=== PATIENT | female | born 1955 | race Two or more races ===

== ENCOUNTER 2023-09-25 21:44 | Inpatient (IN) | payer OTHER ==
[~2023-09-25] VITALS: Ht 165.1 cm; Wt 76.2 kg
[2023-09-25 22:57] LABS: BASOPHILS # (AUTO) 0.1 K/uL (0.0-0.2); BASOPHILS % (AUTO) 0.7 % (0.0-2.0); EOSINOPHILS # (AUTO) 0.1 K/uL (0.0-0.7); EOSINOPHILS % (AUTO) 0.5 % (0.0-6.0); HEMATOCRIT 37 % (33-45); HEMOGLOBIN 12.5 g/dL (11.5-14.8); LYMPHOCYTES # (AUTO) 1.7 K/uL (0.8-4.8); LYMPHOCYTES % (AUTO) 13.2 % (20.0-44.0); MEAN CORPUSCULAR HEMOGLOBIN 27 PG (26.0-33.0); MEAN CORPUSCULAR HGB CONC 34 g/dl (31.0-36.0); MEAN CORPUSCULAR VOLUME 82 fL (82-100); MONOCYTES # (AUTO) 0.9 K/uL (0.1-1.30); MONOCYTES % (AUTO) 7.3 % (2.0-12.0); NEUTROPHILS % (AUTO) 78.3 % (43.0-81.0); PLATELET COUNT (AUTO) 306 K/uL (150-450); RED BLOOD CELL COUNT(AUTO) 4.56 MIL/uL (4.0-5.2); RED CELL DISTRIBUTION WIDTH 13.4 % (11.5-15.0); WHITE BLOOD COUNT (AUTO) 12.8 K/uL (4.3-11.0)
[2023-09-25 23:05] LABS: ALBUMIN 3.5 g/dL (3.4-5.0); BILIRUBIN,TOTAL 0.3 mg/dL (0.2-1.0); CALCIUM, SERUM 9.3 mg/dL (8.5-10.1); CREATININE 3.1 mg/dL (0.6-1.3); POTASSIUM 3.6 mmol/L (3.5-5.1); TOTAL PROTEIN, SERUM 7.4 g/dL (6.4-8.2)
[2023-09-25] MEDS ORDERED: IV NS 0.9% 1,000 ML IV STA (23:45)
[2023-09-26] MEDS ORDERED: IV NS 0.9% 1,000 ML IV PRN
[2023-09-26 00:28] LABS: APPEARANCE,URINE CLEAR (CLEAR); BILIRUBIN,URINE 1+ (NEGATIVE); BLOOD, URINE NEGATIVE Ery/uL (NEGATIVE); COLOR,URINE YELLOW (YELLOW); KETONES,URINE TRACE mg/dL (NEGATIVE); LEUKOCYTE ESTERASE ,URINE NEGATIVE (NEGATIVE); NITRITE, URINE NEGATIVE (NEGATIVE); PROTEIN,URINE 1+ mg/dl (NEGATIVE); UGLUCOSE 2+ mg/dL (NEGATIVE); UROBILINOGEN,URINE 0.2 EU/dL (0.2)
[2023-09-26] MEDS ORDERED: ONDANSETRON HCL/PF 4 MG/2 ML VIAL IVP PRN (00:30)
[2023-09-26] MEDS ORDERED: MORPHINE SULFATE INJ 2 MG/ML DISP.SYRIN IV PRN (00:30)
[2023-09-26] MEDS ORDERED: DEXTROSE 50%-WATER 50 ML DISP.SYRIN IV PRN (00:30)
[2023-09-26 00:45] LABS: CREATININE, URINE 149.1 MG/DL (30.0-125.0)
[2023-09-26 01:16] LABS: ADD URINE CULTURE NO; BACTERIA,URINE Few /HPF (None Seen); RBC,URINE 0-2 /HPF (0-2); SQUAMOUS EPITHELIAL CELL,UR Few /HPF (None Seen); WBC,URINE 0-2 /HPF (0-3)
[2023-09-26 01:17] LABS: URINE AMORPHOUS URATE Moderate /HPF (None Seen)
[2023-09-26] MEDS ORDERED: CEFEPIME 1 GM in IV D5W 50 ML IV ONE (02:00)
[2023-09-26] MEDS: IV NS 0.9% 1,000 ML IV SCH ×2 (02:36→13:32)
[2023-09-26] MEDS ORDERED: CEFEPIME 1 GM VIAL ONE (03:09)
[2023-09-26] MEDS: ACETAMINOPHEN 325 MG TABLET PO PRN ×2 (03:53→21:58)
[2023-09-26] MEDS: BLOOD SUGAR DIAGNOSTIC 1 EACH STRIP IN SCH ×4 (06:24→21:33)
[2023-09-26] MEDS: INSULIN REGULAR, HUMAN 100 UNIT/ML 3 ML VIAL SQ PRN ×4 (06:26→21:56)
[2023-09-26 08:00] VITALS: BP 99/66; TEMP 99; O2SAT 96
[2023-09-26] MEDS ORDERED: DOCU-141 PO (08:01)
[2023-09-26] MEDS ORDERED: ROSU5TAB PO (08:01)
[2023-09-26] MEDS ORDERED: BENA20TA78 PO (08:01)
[2023-09-26] MEDS ORDERED: GLIM4TAB37 PO (08:01)
[2023-09-26] MEDS: HEPARIN SODIUM, PORCINE 5000 UNITS/1 ML VIAL SQ SCH ×2 (09:07→21:34)
[2023-09-26] MEDS: DOCUSATE SODIUM 100 MG CAPSULE PO SCH ×2 (12:00→21:33)
[2023-09-26] MEDS ORDERED: DOCUSATE SODIUM 100 MG CAPSULE PO PRN (12:30)
[2023-09-26 13:54] LABS: THYROID STIMULATING HORMONE 0.848 uIU/mL (0.358-3.74)
[2023-09-26 14:05] LABS: C-REACTIVE PROTEIN 10.6 mg/dL (0.2-0.9)
[2023-09-26 16:00] VITALS: BP 113/74; TEMP 98.8; O2SAT 97
[2023-09-26] MEDS: GLIMEPIRIDE 4 MG TABLET PO SCH (16:47)
[2023-09-26 20:00] VITALS: BP 134/65; TEMP 98.3; O2SAT 95
[2023-09-26] MEDS: OXYMETAZOLINE HCL NASAL SPRAY 30 ML BOTTLE NS PRN (21:33)
[2023-09-26] MEDS: ATORVASTATIN 10 MG TABLET PO SCH (21:33)
[2023-09-26] MEDS: CEFEPIME 1 GM in IV D5W 50 ML IV SCH (23:25)
[2023-09-27] MEDS: IV NS 0.9% 1,000 ML IV SCH ×2 (04:51→16:42)
[2023-09-27] MEDS: BLOOD SUGAR DIAGNOSTIC 1 EACH STRIP IN SCH ×4 (05:59→21:37)
[2023-09-27] MEDS: INSULIN REGULAR, HUMAN 100 UNIT/ML 3 ML VIAL SQ PRN ×4 (06:09→21:48)
[2023-09-27 07:02] LABS: BASOPHILS # (AUTO) 0.1 K/uL (0.0-0.2); EOSINOPHILS # (AUTO) 0.3 K/uL (0.0-0.7); EOSINOPHILS % (AUTO) 3.1 % (0.0-6.0); HEMATOCRIT 31 % (33-45); HEMOGLOBIN 10.4 g/dL (11.5-14.8); LYMPHOCYTES # (AUTO) 2.5 K/uL (0.8-4.8); LYMPHOCYTES % (AUTO) 26.7 % (20.0-44.0); MEAN CORPUSCULAR HEMOGLOBIN 28 PG (26.0-33.0); MEAN CORPUSCULAR HGB CONC 34 g/dl (31.0-36.0); MEAN CORPUSCULAR VOLUME 82 fL (82-100); MONOCYTES # (AUTO) 0.7 K/uL (0.1-1.30); NEUTROPHILS # (AUTO) 5.6 K/uL (1.8-8.9); NEUTROPHILS % (AUTO) 61.2 % (43.0-81.0); PLATELET COUNT (AUTO) 237 K/uL (150-450); RED BLOOD CELL COUNT(AUTO) 3.78 MIL/uL (4.0-5.2); WHITE BLOOD COUNT (AUTO) 9.2 K/uL (4.3-11.0)
[2023-09-27 07:07] LABS: FOLIC ACID 13.5 ng/mL (>3.0)
[2023-09-27 07:25] LABS: ALBUMIN 2.6 g/dL (3.4-5.0); BILIRUBIN,TOTAL 0.3 mg/dL (0.2-1.0); CALCIUM, SERUM 8.7 mg/dL (8.5-10.1); CREATININE 1.5 mg/dL (0.6-1.3); MAGNESIUM 2.6 mg/dL (1.8-2.4); PHOSPHORUS 4.1 mg/dL (2.5-4.9); POTASSIUM 3.2 mmol/L (3.5-5.1); TOTAL PROTEIN, SERUM 6.2 g/dL (6.4-8.2)
[2023-09-27 08:00] VITALS: BP 139/89; TEMP 99.1; O2SAT 92
[2023-09-27] MEDS: DOCUSATE SODIUM 100 MG CAPSULE PO SCH ×2 (08:13→21:36)
[2023-09-27] MEDS: BENAZEPRIL HCL 20 MG TABLET PO SCH (08:13)
[2023-09-27] MEDS: GLIMEPIRIDE 4 MG TABLET PO SCH ×2 (08:14→16:42)
[2023-09-27] MEDS: HEPARIN SODIUM, PORCINE 5000 UNITS/1 ML VIAL SQ SCH ×2 (08:15→20:44)
[2023-09-27] MEDS ORDERED: POTASSIUM CHLORIDE 20 MEQ TAB.PRT.SR PO ONE (09:00)
[2023-09-27 16:00] VITALS: BP 146/72; TEMP 97.7; O2SAT 98
[2023-09-27] MEDS: ACETAMINOPHEN 325 MG TABLET PO PRN ×2 (16:55→23:56)
[2023-09-27 20:00] VITALS: BP 158/66; TEMP 98.8; O2SAT 97
[2023-09-27] MEDS: ATORVASTATIN 10 MG TABLET PO SCH (21:36)
[2023-09-27] MEDS: CEFEPIME 1 GM in IV D5W 50 ML IV SCH (22:45)
[2023-09-27] MEDS: OXYMETAZOLINE HCL NASAL SPRAY 30 ML BOTTLE NS PRN (22:47)
[2023-09-28] MEDS: BLOOD SUGAR DIAGNOSTIC 1 EACH STRIP IN SCH ×4 (05:25→21:29)
[2023-09-28] MEDS: INSULIN REGULAR, HUMAN 100 UNIT/ML 3 ML VIAL SQ PRN ×4 (05:31→21:30)
[2023-09-28] MEDS: IV NS 0.9% 1,000 ML IV SCH (05:50)
[2023-09-28 06:07] LABS: PTH, INTACT 25 pg/mL (15-65)
[2023-09-28 06:33] LABS: CREATININE, URINE 29.2 MG/DL (30.0-125.0); URINE TOTAL PROTEIN 124.7 mg/dL (0-11.9)
[2023-09-28 06:41] LABS: BASOPHILS # (AUTO) 0.1 K/uL (0.0-0.2); BASOPHILS % (AUTO) 0.9 % (0.0-2.0); EOSINOPHILS # (AUTO) 0.4 K/uL (0.0-0.7); HEMATOCRIT 34 % (33-45); HEMOGLOBIN 11.2 g/dL (11.5-14.8); LYMPHOCYTES # (AUTO) 2.2 K/uL (0.8-4.8); LYMPHOCYTES % (AUTO) 25.1 % (20.0-44.0); MEAN CORPUSCULAR HEMOGLOBIN 27 PG (26.0-33.0); MEAN CORPUSCULAR HGB CONC 33 g/dl (31.0-36.0); MEAN CORPUSCULAR VOLUME 82 fL (82-100); MONOCYTES # (AUTO) 0.9 K/uL (0.1-1.30); MONOCYTES % (AUTO) 9.8 % (2.0-12.0); NEUTROPHILS # (AUTO) 5.3 K/uL (1.8-8.9); NEUTROPHILS % (AUTO) 60.2 % (43.0-81.0); PLATELET COUNT (AUTO) 261 K/uL (150-450); RED BLOOD CELL COUNT(AUTO) 4.09 MIL/uL (4.0-5.2); RED CELL DISTRIBUTION WIDTH 13.3 % (11.5-15.0); WHITE BLOOD COUNT (AUTO) 8.8 K/uL (4.3-11.0)
[2023-09-28 07:08] LABS: ALBUMIN 2.9 g/dL (3.4-5.0); BILIRUBIN,TOTAL 0.3 mg/dL (0.2-1.0); CALCIUM, SERUM 9.1 mg/dL (8.5-10.1); CREATININE 0.8 mg/dL (0.6-1.3); MAGNESIUM 2.4 mg/dL (1.8-2.4); PHOSPHORUS 2.4 mg/dL (2.5-4.9); POTASSIUM 3.5 mmol/L (3.5-5.1)
[2023-09-28 08:00] VITALS: BP 167/83; TEMP 98.8; O2SAT 97
[2023-09-28] MEDS: BENAZEPRIL HCL 20 MG TABLET PO SCH (08:13)
[2023-09-28] MEDS: GLIMEPIRIDE 4 MG TABLET PO SCH ×2 (08:13→16:05)
[2023-09-28] MEDS: DOCUSATE SODIUM 100 MG CAPSULE PO SCH ×2 (08:13→20:26)
[2023-09-28] MEDS: HEPARIN SODIUM, PORCINE 5000 UNITS/1 ML VIAL SQ SCH ×2 (08:14→20:29)
[2023-09-28] MEDS: ACETAMINOPHEN 325 MG TABLET PO PRN (08:55)
[2023-09-28] MEDS: CEFEPIME 1 GM in IV D5W 50 ML IV SCH ×2 (09:24→20:26)
[2023-09-28] MEDS ORDERED: K PHOS NEUTRAL 250 MG TABLET PO ONE ×2 (09:30→17:00)
[2023-09-28] MEDS ORDERED: BISACODYL (5 MG) 5 MG TABLET.DR PO PRN (16:00)
[2023-09-28 20:00] VITALS: BP 144/84; TEMP 98.4; O2SAT 98
[2023-09-28] MEDS: OXYMETAZOLINE HCL NASAL SPRAY 30 ML BOTTLE NS PRN (20:09)
[2023-09-28] MEDS: ATORVASTATIN 10 MG TABLET PO SCH (21:30)
[2023-09-29] MEDS: ACETAMINOPHEN 325 MG TABLET PO PRN ×3 (02:57→23:08)
[2023-09-29 05:58] LABS: BASOPHILS # (AUTO) 0.1 K/uL (0.0-0.2); BASOPHILS % (AUTO) 1.1 % (0.0-2.0); EOSINOPHILS # (AUTO) 0.4 K/uL (0.0-0.7); HEMATOCRIT 31 % (33-45); HEMOGLOBIN 10.5 g/dL (11.5-14.8); LYMPHOCYTES # (AUTO) 2.6 K/uL (0.8-4.8); LYMPHOCYTES % (AUTO) 34.4 % (20.0-44.0); MEAN CORPUSCULAR HEMOGLOBIN 27 PG (26.0-33.0); MEAN CORPUSCULAR HGB CONC 34 g/dl (31.0-36.0); MEAN CORPUSCULAR VOLUME 82 fL (82-100); MONOCYTES # (AUTO) 0.7 K/uL (0.1-1.30); MONOCYTES % (AUTO) 9.7 % (2.0-12.0); NEUTROPHILS # (AUTO) 3.8 K/uL (1.8-8.9); NEUTROPHILS % (AUTO) 49.8 % (43.0-81.0); PLATELET COUNT (AUTO) 255 K/uL (150-450); RED BLOOD CELL COUNT(AUTO) 3.83 MIL/uL (4.0-5.2); RED CELL DISTRIBUTION WIDTH 13.2 % (11.5-15.0); WHITE BLOOD COUNT (AUTO) 7.6 K/uL (4.3-11.0)
[2023-09-29 06:08] LABS: ALBUMIN 2.8 g/dL (3.4-5.0); BILIRUBIN,TOTAL 0.2 mg/dL (0.2-1.0); CALCIUM, SERUM 9.4 mg/dL (8.5-10.1); CREATININE 0.8 mg/dL (0.6-1.3); MAGNESIUM 2.2 mg/dL (1.8-2.4); PHOSPHORUS 3.7 mg/dL (2.5-4.9); POTASSIUM 3.6 mmol/L (3.5-5.1); TOTAL PROTEIN, SERUM 6.7 g/dL (6.4-8.2)
[2023-09-29] MEDS: BLOOD SUGAR DIAGNOSTIC 1 EACH STRIP IN SCH ×4 (06:33→21:55)
[2023-09-29] MEDS: INSULIN REGULAR, HUMAN 100 UNIT/ML 3 ML VIAL SQ PRN ×4 (06:36→21:56)
[2023-09-29 07:30] VITALS: BP 155/90; TEMP 98.2; O2SAT 97
[2023-09-29] MEDS: DOCUSATE SODIUM 100 MG CAPSULE PO SCH ×2 (08:51→21:53)
[2023-09-29] MEDS: BENAZEPRIL HCL 20 MG TABLET PO SCH (08:51)
[2023-09-29] MEDS: GLIMEPIRIDE 4 MG TABLET PO SCH ×2 (08:51→16:59)
[2023-09-29] MEDS: CEFEPIME 1 GM in IV D5W 50 ML IV SCH ×2 (08:51→20:29)
[2023-09-29] MEDS: HEPARIN SODIUM, PORCINE 5000 UNITS/1 ML VIAL SQ SCH ×2 (09:00→21:55)
[2023-09-29 16:00] VITALS: BP 172/95; TEMP 98.1; O2SAT 96
[2023-09-29] MEDS: OXYMETAZOLINE HCL NASAL SPRAY 30 ML BOTTLE NS PRN (20:29)
[2023-09-29 21:00] VITALS: BP 171/78; TEMP 98.2; O2SAT 95
[2023-09-29 21:05] VITALS: BP 171/78; TEMP 98.2; O2SAT 95
[2023-09-29 21:06] VITALS: BP 202/103
[2023-09-29] MEDS: ATORVASTATIN 10 MG TABLET PO SCH (21:53)
[2023-09-29] MEDS: hydrALAZINE HCL IV 20 MG VIAL IV PRN (22:00)
[2023-09-29 23:00] VITALS: BP 168/78
[2023-09-30] MEDS ORDERED: hydrALAZINE HCL IV 20 MG VIAL IV ONE
[2023-09-30 01:15] VITALS: BP 118/63
[2023-09-30] MEDS: ACETAMINOPHEN 325 MG TABLET PO PRN (05:36)
[2023-09-30] MEDS: BLOOD SUGAR DIAGNOSTIC 1 EACH STRIP IN SCH ×2 (06:43→11:43)
[2023-09-30] MEDS: INSULIN REGULAR, HUMAN 100 UNIT/ML 3 ML VIAL SQ PRN ×2 (06:46→11:44)
[2023-09-30 07:30] VITALS: BP 152/83; TEMP 98.1; O2SAT 94
[2023-09-30] MEDS: DOCUSATE SODIUM 100 MG CAPSULE PO SCH (08:47)
[2023-09-30] MEDS: BENAZEPRIL HCL 20 MG TABLET PO SCH (08:47)
[2023-09-30] MEDS: HEPARIN SODIUM, PORCINE 5000 UNITS/1 ML VIAL SQ SCH (08:47)
[2023-09-30] MEDS: GLIMEPIRIDE 4 MG TABLET PO SCH (08:47)
[2023-09-30] MEDS: CEFEPIME 1 GM in IV D5W 50 ML IV SCH (08:51)
[2023-09-30 09:07] LABS: *SPE ALBUMIN 2.7 g/dL (2.9-4.4); *SPE ALPHA-1-GLOBULIN 0.3 g/dL (0.0-0.4); *SPE BETA GLOBULIN 0.8 g/dL (0.7-1.3); *SPE GLOBULIN, TOTAL 2.8 g/dL (2.2-3.9); *SPE M-SPIKE Not Observed g/dL (Not Observed); *SPE PROTEIN TOTAL 5.5 g/dL (6.0-8.5); *SPEGAMMA GLOBULIN 0.7 g/dL (0.4-1.8)
[2023-09-30 12:37] VITALS: BP 186/84
[2023-09-30] MEDS: hydrALAZINE HCL IV 20 MG VIAL IV PRN (12:37)
== END 2023-09-30 16:00 | DRG 48 ==
LOC: ER 21:52 → MED 09-26 01:18
DX: E11.42 Type 2 diabetes mellitus with diabetic polyneuropathy (principal); N17.0 Acute kidney failure with tubular necrosis; E87.1 Hypo-osmolality and hyponatremia; E11.22 Type 2 diabetes mellitus with diabetic chronic kidney disease; E86.9 Volume depletion, unspecified; K52.9 Noninfective gastroenteritis and colitis, unspecified; E11.65 Type 2 diabetes mellitus with hyperglycemia; I12.9 Hypertensive chronic kidney disease with stage 1 through stage 4 chronic kidney disease, or unspecified chronic kidney disease; N18.9 Chronic kidney disease, unspecified; E78.5 Hyperlipidemia, unspecified; E87.6 Hypokalemia; R29.6 Repeated falls; R53.1 Weakness; Z79.84 Long term (current) use of oral hypoglycemic drugs; R51.9 Headache, unspecified; N20.0 Calculus of kidney; R91.1 Solitary pulmonary nodule; E88.9 Metabolic disorder, unspecified; W19.XXXA Unspecified fall, initial encounter; Y92.009 Unspecified place in unspecified non-institutional (private) residence as the place of occurrence of the external cause
CPT/HCPCS: 36415; 76770-TC; 80048-TC; 80053-TC; 80061-TC; 80076-TC; 81001; 82550-TC; 82570-TC; 82607-TC; 82962-TC; 83605-TC; 83690-TC; 83735-TC; 83921; 83970; 84100-TC; 84155; 84165; 84300-TC; 84439-TC; 84443-TC; 85025-TC; 85652-TC; 86140-TC; 93307-TC; 93880-TC; 97110-TC; 97112-TC; 97116-TC; 97530-TC; A4223; G0378; J0360; J0692; J1644; J1815; J2405; J7030; J7060

== ENCOUNTER 2023-11-22 14:51 | Emergency (ER) | payer OTHER ==
[~2023-11-22] VITALS: Ht 165.1 cm; Wt 81.6 kg
[~2023-11-22 14:51] MED LIST: BENA20TA78 PO; DOCU-141 PO; GLIM4TAB37 PO; ROSU5TAB PO
[2023-11-22 15:20] VITALS: TEMP 98
[2023-11-22 16:46] LABS: BASOPHILS # (AUTO) 0.1 K/uL (0.0-0.2); EOSINOPHILS # (AUTO) 0.1 K/uL (0.0-0.7); EOSINOPHILS % (AUTO) 1.6 % (0.0-6.0); HEMATOCRIT 36 % (33-45); HEMOGLOBIN 11.9 g/dL (11.5-14.8); LYMPHOCYTES # (AUTO) 2.6 K/uL (0.8-4.8); LYMPHOCYTES % (AUTO) 31.9 % (20.0-44.0); MEAN CORPUSCULAR HEMOGLOBIN 27 PG (26.0-33.0); MEAN CORPUSCULAR HGB CONC 33 g/dl (31.0-36.0); MEAN CORPUSCULAR VOLUME 82 fL (82-100); MONOCYTES # (AUTO) 0.4 K/uL (0.1-1.30); MONOCYTES % (AUTO) 5.4 % (2.0-12.0); NEUTROPHILS # (AUTO) 4.9 K/uL (1.8-8.9); NEUTROPHILS % (AUTO) 60.1 % (43.0-81.0); PLATELET COUNT (AUTO) 255 K/uL (150-450); RED CELL DISTRIBUTION WIDTH 13.2 % (11.5-15.0); WHITE BLOOD COUNT (AUTO) 8.2 K/uL (4.3-11.0)
[2023-11-22 17:03] LABS: ACETAMINOPHEN < 10 ug/ml (10-30); ALANINE AMINOTRANSFERASE 17 U/L (12-78); ALBUMIN 3.4 g/dL (3.4-5.0); ALCOHOL, BLOOD < 3 mg/dL (0-10); ALKALINE PHOSPHATASE 100 U/L (46-116); ASPARTATE AMINOTRANSFERASE 10 U/L (15-37); BILIRUBIN,DIRECT 0.1 mg/dL (0.0-0.2); BILIRUBIN,TOTAL 0.4 mg/dL (0.2-1.0); CALCIUM, SERUM 10.2 mg/dL (8.5-10.1); CARBON DIOXIDE 26 mmol/L (21-32); CHLORIDE 96 mmol/L (98-107); CREATININE 1.1 mg/dL (0.6-1.3); POTASSIUM 4.2 mmol/L (3.5-5.1); SODIUM SERUM 133 mmol/L (136-145); TOTAL PROTEIN, SERUM 7.6 g/dL (6.4-8.2); UREA NITROGEN, BLOOD 25 mg/dL (7-18)
[2023-11-22 17:05] LABS: SALICYLATE 1.9 mg/dL (2.8-20.0)
[2023-11-22 17:06] LABS: GLUCOSE 420 mg/dL (74-106)
[2023-11-22] MEDS ORDERED: IV NS 0.9% 1,000 ML BAG IV ONE ×2 (19:00→23:30)
[2023-11-22] MEDS ORDERED: INSULIN REGULAR, HUMAN 100 UNIT/ML 10 ML VIAL SQ ONE ×2 (19:00→20:30)
[2023-11-22] MEDS ORDERED: INSULIN REGULAR, HUMAN 100 UNIT/ML 10 ML VIAL ONE (19:13)
[2023-11-22] MEDS ORDERED: CLONIDINE HCL 0.1 MG TABLET PO ONE (20:30)
[2023-11-22] MEDS ORDERED: CLONIDINE HCL 0.1 MG TABLET ONE (20:49)
[2023-11-22] MEDS ORDERED: INSULIN GLARGINE, 100 UNIT/ML CARTRIDGE SQ SCH (22:00)
[2023-11-23 00:45] LABS: APPEARANCE,URINE CLEAR (CLEAR); BILIRUBIN,URINE NEGATIVE (NEGATIVE); BLOOD, URINE NEGATIVE Ery/uL (NEGATIVE); COLOR,URINE YELLOW (YELLOW); KETONES,URINE NEGATIVE (NEGATIVE); LEUKOCYTE ESTERASE ,URINE NEGATIVE (NEGATIVE); NITRITE, URINE NEGATIVE (NEGATIVE); PH,URINE 6.5 (5.0-8.0); PROTEIN,URINE NEGATIVE (NEGATIVE); UGLUCOSE 3+ mg/dL (NEGATIVE); UROBILINOGEN,URINE 0.2 EU/dL (0.2)
[2023-11-23 00:48] LABS: ADD URINE CULTURE NO; BACTERIA,URINE Rare /HPF (None Seen); RBC,URINE 0-2 /HPF (0-2); SQUAMOUS EPITHELIAL CELL,UR Few /HPF (None Seen); WBC,URINE 0-2 /HPF (0-3)
[2023-11-23 01:00] LABS: AMPHETAMINE, URINE NEGATIVE (NEGATIVE); BARBITURATE, URINE NEGATIVE (NEGATIVE); BENZODIAZEPINE, URINE NEGATIVE (NEGATIVE); CANNABINOID, URINE NEGATIVE (NEGATIVE); COCCAINE, URINE NEGATIVE (NEGATIVE); OPIATE, URINE NEGATIVE (NEGATIVE); PHENCYCLIDINE SCREEN,URINE NEGATIVE (NEGATIVE)
[2023-11-23] MEDS ORDERED: LORAZEPAM 1 MG TABLET ONE (02:56)
[2023-11-23] MEDS ORDERED: QUETIAPINE FUMARATE 25 MG TABLET ONE (02:56)
[2023-11-23] MEDS ORDERED: QUETIAPINE FUMARATE 25 MG TABLET PO SCH (03:00)
[2023-11-23] MEDS ORDERED: LORAZEPAM 1 MG TABLET PO ONE (03:00)
[2023-11-23] MEDS ORDERED: CLONIDINE HCL 0.1 MG TABLET PO ONE (07:30)
[2023-11-23] MEDS ORDERED: CLONIDINE HCL 0.1 MG TABLET ONE (07:32)
[2023-11-23 07:51] VITALS: BP 150/84; O2SAT 98
== END 2023-11-23 07:51 ==
LOC: ER 15:00
DX: E11.65 Type 2 diabetes mellitus with hyperglycemia (principal); R45.1 Restlessness and agitation; I10 Essential (primary) hypertension
CPT/HCPCS: 99285; 96372; 96360; 96361; 93005 ×2; 71045; 85025; 80048; 80076; 36415; 84484 ×2; 82962 ×3; 80143; 80320; 80307; 81001; J1815 ×2; J7030 ×2; G0480

== ENCOUNTER 2024-04-04 10:24 | Inpatient (IN) | payer OTHER ==
[~2024-04-04] VITALS: Ht 154.9 cm; Wt 80.3 kg
[2024-04-04] MEDS ORDERED: INSU100V3 SQ (11:11)
[2024-04-04] MEDS ORDERED: INSU100V7 SQ (11:11)
[2024-04-04] MEDS ORDERED: ATOR10TA PO (11:11)
[2024-04-04] MEDS ORDERED: GLUC1KIT IM (11:11)
[2024-04-04] MEDS ORDERED: ACET-868 PO (11:11)
[2024-04-04] MEDS ORDERED: NA P133E RC (11:11)
[2024-04-04] MEDS ORDERED: BISA10SU11 RC (11:11)
[2024-04-04] MEDS ORDERED: TEMA7.5C PO (11:11)
[2024-04-04] MEDS ORDERED: CRAN425C6 PO (11:11)
[2024-04-04] MEDS ORDERED: hydrALAZINE HCL IV 20 MG VIAL ONE (11:15)
[2024-04-04] MEDS ORDERED: OLANZAPINE 5 MG TABLET ONE (11:15)
[2024-04-04] MEDS: IV NS 0.9% 1,000 ML BAG IV ONE (11:23)
[2024-04-04] MEDS: OLANZAPINE ZYDIS 5 MG TAB.RAPDIS PO ONE (11:23)
[2024-04-04] MEDS: hydrALAZINE HCL IV 20 MG VIAL IV ONE (11:28)
[2024-04-04 12:00] LABS: BASOPHILS # (AUTO) 0.1 K/uL (0.0-0.2); EOSINOPHILS # (AUTO) 0.1 K/uL (0.0-0.7); EOSINOPHILS % (AUTO) 2.3 % (0.0-6.0); HEMATOCRIT 37 % (33-45); HEMOGLOBIN 12.3 g/dL (11.5-14.8); LYMPHOCYTES # (AUTO) 2.5 K/uL (0.8-4.8); LYMPHOCYTES % (AUTO) 39.8 % (20.0-44.0); MEAN CORPUSCULAR HEMOGLOBIN 28 PG (26.0-33.0); MEAN CORPUSCULAR HGB CONC 33 g/dl (31.0-36.0); MEAN CORPUSCULAR VOLUME 83 fL (82-100); MONOCYTES # (AUTO) 0.4 K/uL (0.1-1.30); MONOCYTES % (AUTO) 6.6 % (2.0-12.0); NEUTROPHILS # (AUTO) 3.1 K/uL (1.8-8.9); NEUTROPHILS % (AUTO) 50.3 % (43.0-81.0); PLATELET COUNT (AUTO) 222 K/uL (150-450); RED BLOOD CELL COUNT(AUTO) 4.47 MIL/uL (4.0-5.2); RED CELL DISTRIBUTION WIDTH 13.5 % (11.5-15.0); WHITE BLOOD COUNT (AUTO) 6.3 K/uL (4.3-11.0)
[2024-04-04 12:13] LABS: ACETAMINOPHEN < 10 ug/ml (10-30); ALANINE AMINOTRANSFERASE 21 U/L (12-78); ALBUMIN 2.9 g/dL (3.4-5.0); ALCOHOL, BLOOD < 3 mg/dL (0-10); ALKALINE PHOSPHATASE 114 U/L (46-116); ASPARTATE AMINOTRANSFERASE 9 U/L (15-37); BILIRUBIN,DIRECT 0.1 mg/dL (0.0-0.2); BILIRUBIN,TOTAL 0.3 mg/dL (0.2-1.0); CARBON DIOXIDE 25 mmol/L (21-32); CHLORIDE 100 mmol/L (98-107); POTASSIUM 4.1 mmol/L (3.5-5.1); SODIUM SERUM 135 mmol/L (136-145); TOTAL PROTEIN, SERUM 6.8 g/dL (6.4-8.2); UREA NITROGEN, BLOOD 24 mg/dL (7-18)
[2024-04-04 12:15] LABS: SALICYLATE 1.5 mg/dL (2.8-20.0)
[2024-04-04 12:18] LABS: GLUCOSE 511 mg/dL (74-106)
[2024-04-04 12:46] LABS: APPEARANCE,URINE CLEAR (CLEAR); BILIRUBIN,URINE NEGATIVE (NEGATIVE); BLOOD, URINE NEGATIVE Ery/uL (NEGATIVE); COLOR,URINE YELLOW (YELLOW); KETONES,URINE NEGATIVE (NEGATIVE); LEUKOCYTE ESTERASE ,URINE NEGATIVE (NEGATIVE); NITRITE, URINE NEGATIVE (NEGATIVE); PROTEIN,URINE NEGATIVE (NEGATIVE); UGLUCOSE 3+ mg/dL (NEGATIVE); UROBILINOGEN,URINE 0.2 EU/dL (0.2)
[2024-04-04 13:13] LABS: RBC,URINE 0-2 /HPF (0-2); WBC,URINE 0-2 /HPF (0-3)
[2024-04-04 13:14] LABS: ADD URINE CULTURE NO; BACTERIA,URINE 1+ /HPF (None Seen); YEAST,URINE Rare /HPF (None Seen)
[2024-04-04 13:15] LABS: AMPHETAMINE, URINE NEGATIVE (NEGATIVE); BARBITURATE, URINE NEGATIVE (NEGATIVE); BENZODIAZEPINE, URINE NEGATIVE (NEGATIVE); CANNABINOID, URINE NEGATIVE (NEGATIVE); COCCAINE, URINE NEGATIVE (NEGATIVE); OPIATE, URINE NEGATIVE (NEGATIVE); PHENCYCLIDINE SCREEN,URINE NEGATIVE (NEGATIVE)
[2024-04-04] MEDS ORDERED: DEXTROSE 50%-WATER 50 ML DISP.SYRIN IV PRN (17:00)
[2024-04-04] MEDS ORDERED: ENOXAPARIN SODIUM 40 MG/0.4 ML DISP.SYRIN SQ SCH (17:00)
[2024-04-04] MEDS ORDERED: Z GUARD REMEDY 4 OZ OINT TP PRN (17:00)
[2024-04-04] MEDS ORDERED: MAG HYDROX/AL HYDROX/SIMETH 30 ML UDC PO PRN (17:00)
[2024-04-04] MEDS ORDERED: MAGNESIUM HYDROXIDE 30 ML UDC PO PRN (17:00)
[2024-04-04] MEDS ORDERED: ONDANSETRON HCL/PF 4 MG/2 ML VIAL IVP PRN (17:00)
[2024-04-04] MEDS ORDERED: TEMAZEPAM 7.5 MG CAPSULE PO PRN (17:30)
[2024-04-04] MEDS ORDERED: BISACODYL SUPP (10 MG) 10 MG/SUPP.RECT SUPP.RECT RC PRN (17:30)
[2024-04-04] MEDS ORDERED: BLOOD SUGAR DIAGNOSTIC 1 EACH STRIP VI SCH (17:30)
[2024-04-04 20:00] VITALS: BP 170/84; TEMP 97.9; O2SAT 97
[2024-04-04] MEDS: ENOXAPARIN SODIUM 40 MG/0.4 ML DISP.SYRIN SQ SCH (20:15)
[2024-04-04] MEDS: IV NS 0.9% 1,000 ML IV PRN (20:27)
[2024-04-04] MEDS: INSULIN GLARGINE, 100 UNIT/ML CARTRIDGE SQ SCH (22:13)
[2024-04-04] MEDS: BLOOD SUGAR DIAGNOSTIC 1 EACH STRIP VI SCH (22:16)
[2024-04-04] MEDS: ATORVASTATIN 10 MG TABLET PO SCH (22:16)
[2024-04-04] MEDS: *INSULIN REGULAR(HUMULIN R)HUM 100 UNIT/ML VIAL SQ PRN (22:19)
[2024-04-05 04:00] VITALS: BP 148/75; TEMP 98.1; O2SAT 96
[2024-04-05] MEDS: INSULIN REGULAR, HUMAN 100 UNIT/ML 3 ML VIAL SQ PRN (06:41)
[2024-04-05 07:30] VITALS: BP 138/75; TEMP 98.4; O2SAT 95
[2024-04-05 07:39] LABS: BASOPHILS % (AUTO) 0.8 % (0.0-2.0); EOSINOPHILS # (AUTO) 0.2 K/uL (0.0-0.7); EOSINOPHILS % (AUTO) 3.5 % (0.0-6.0); HEMATOCRIT 35 % (33-45); HEMOGLOBIN 11.7 g/dL (11.5-14.8); LYMPHOCYTES # (AUTO) 2.8 K/uL (0.8-4.8); LYMPHOCYTES % (AUTO) 47.2 % (20.0-44.0); MEAN CORPUSCULAR HEMOGLOBIN 27 PG (26.0-33.0); MEAN CORPUSCULAR HGB CONC 33 g/dl (31.0-36.0); MEAN CORPUSCULAR VOLUME 82 fL (82-100); MONOCYTES # (AUTO) 0.5 K/uL (0.1-1.30); MONOCYTES % (AUTO) 7.7 % (2.0-12.0); NEUTROPHILS # (AUTO) 2.4 K/uL (1.8-8.9); NEUTROPHILS % (AUTO) 40.8 % (43.0-81.0); PLATELET COUNT (AUTO) 213 K/uL (150-450); RED BLOOD CELL COUNT(AUTO) 4.28 MIL/uL (4.0-5.2); RED CELL DISTRIBUTION WIDTH 13.2 % (11.5-15.0); WHITE BLOOD COUNT (AUTO) 5.8 K/uL (4.3-11.0)
[2024-04-05 07:56] LABS: CALCIUM, SERUM 8.3 mg/dL (8.5-10.1); CREATININE 0.8 mg/dL (0.6-1.3); MAGNESIUM 2.4 mg/dL (1.8-2.4); PHOSPHORUS 2.9 mg/dL (2.5-4.9); POTASSIUM 3.6 mmol/L (3.5-5.1)
[2024-04-05] MEDS: PANTOPRAZOLE 40 MG TABLET.DR PO SCH (07:59)
[2024-04-05 08:09] LABS: THYROID STIMULATING HORMONE 1.428 uIU/mL (0.358-3.74)
[2024-04-05] MEDS: GLIMEPIRIDE 4 MG TABLET PO SCH (08:59)
[2024-04-05] MEDS: DOCUSATE SODIUM 100 MG CAPSULE PO SCH (08:59)
[2024-04-05] MEDS: BENAZEPRIL HCL 20 MG TABLET PO SCH (09:00)
[2024-04-05] MEDS ORDERED: OLANZAPINE ZYDIS 5 MG TAB.RAPDIS PO PRN (11:30)
[2024-04-05 16:00] VITALS: BP 134/77; TEMP 97.8; O2SAT 98
[2024-04-05] MEDS: ACETAMINOPHEN 325 MG TABLET PO PRN (19:20)
[2024-04-05 20:00] VITALS: BP 162/86; TEMP 97.7; O2SAT 97
[2024-04-06] MEDS: ATORVASTATIN 10 MG TABLET PO SCH (00:09)
[2024-04-06] MEDS: INSULIN GLARGINE, 100 UNIT/ML CARTRIDGE SQ SCH (00:11)
[2024-04-06 04:00] VITALS: BP 158/82; TEMP 97.6; O2SAT 97
[2024-04-06 06:58] LABS: BASOPHILS # (AUTO) 0.1 K/uL (0.0-0.2); BASOPHILS % (AUTO) 0.7 % (0.0-2.0); EOSINOPHILS # (AUTO) 0.3 K/uL (0.0-0.7); EOSINOPHILS % (AUTO) 3.5 % (0.0-6.0); HEMATOCRIT 34 % (33-45); HEMOGLOBIN 11.6 g/dL (11.5-14.8); LYMPHOCYTES # (AUTO) 3.4 K/uL (0.8-4.8); LYMPHOCYTES % (AUTO) 45.7 % (20.0-44.0); MEAN CORPUSCULAR HEMOGLOBIN 28 PG (26.0-33.0); MEAN CORPUSCULAR HGB CONC 34 g/dl (31.0-36.0); MEAN CORPUSCULAR VOLUME 82 fL (82-100); MONOCYTES # (AUTO) 0.5 K/uL (0.1-1.30); MONOCYTES % (AUTO) 6.9 % (2.0-12.0); NEUTROPHILS # (AUTO) 3.2 K/uL (1.8-8.9); NEUTROPHILS % (AUTO) 43.2 % (43.0-81.0); PLATELET COUNT (AUTO) 223 K/uL (150-450); RED BLOOD CELL COUNT(AUTO) 4.12 MIL/uL (4.0-5.2); RED CELL DISTRIBUTION WIDTH 13.5 % (11.5-15.0); WHITE BLOOD COUNT (AUTO) 7.5 K/uL (4.3-11.0)
[2024-04-06 07:52] LABS: CREATININE 0.8 mg/dL (0.6-1.3); MAGNESIUM 2.2 mg/dL (1.8-2.4); PHOSPHORUS 2.9 mg/dL (2.5-4.9); POTASSIUM 3.6 mmol/L (3.5-5.1)
[2024-04-06 08:00] VITALS: BP 166/88; TEMP 98; O2SAT 97
[2024-04-06] MEDS: AMLODIPINE BESYLATE 5 MG TABLET PO SCH (10:34)
[2024-04-06] MEDS ORDERED: AMLO-212 PO (12:34)
[2024-04-06] MEDS ORDERED: INSU100V7 SQ (12:34)
[2024-04-06 16:00] VITALS: TEMP 97.6; O2SAT 97
[2024-04-06 16:26] VITALS: BP 190/99
[2024-04-06] MEDS: hydrALAZINE HCL 25 MG TABLET PO PRN (16:26)
== END 2024-04-06 18:17 | DRG 420 ==
LOC: ER 10:32 → TRANSITION 14:30 → TELE 18:29 → MED 22:15 → TELE 04-05 05:57 → MED 04-05 13:11
PROVIDERS: ADMIT Nurse Practitioner Family; ATTEND Nurse Practitioner Family
DX: E11.65 Type 2 diabetes mellitus with hyperglycemia (principal); E44.0 Moderate protein-calorie malnutrition; E88.09 Other disorders of plasma-protein metabolism, not elsewhere classified; E11.42 Type 2 diabetes mellitus with diabetic polyneuropathy; F29 Unspecified psychosis not due to a substance or known physiological condition; E86.0 Dehydration; E87.1 Hypo-osmolality and hyponatremia; I10 Essential (primary) hypertension; E87.20 Acidosis, unspecified; E78.5 Hyperlipidemia, unspecified; Z79.4 Long term (current) use of insulin; Z79.84 Long term (current) use of oral hypoglycemic drugs; Z20.822 Contact with and (suspected) exposure to COVID-19; R53.1 Weakness; Z91.81 History of falling; F39 Unspecified mood [affective] disorder; Z68.33 Body mass index [BMI] 33.0-33.9, adult
CPT/HCPCS: 36415; 71045-TC; 80048-TC; 80061-TC; 80076-TC; 81001; 82962-TC; 83735-TC; 84100-TC; 84443-TC; 85025-TC; 87081-TC; 97112-TC; 97116-TC; 97530-TC; A4223; G0378; G0480; J0360; J1650; J1815; J7030

== ENCOUNTER 2024-06-09 15:42 | Emergency (ER) | payer OTHER ==
[~2024-06-09] VITALS: Ht 165.1 cm; Wt 81.6 kg
[~2024-06-09 15:42] MED LIST changes: +ACET-868 PO; +AMLO-212 PO; +ATOR10TA PO; +BISA10SU11 RC; +CRAN425C6 PO; +GLUC1KIT IM; +INSU100V3 SQ; +INSU100V7 SQ; +NA P133E RC; -ROSU5TAB PO; +TEMA7.5C PO
[2024-06-09 16:37] LABS: BASOPHILS # (AUTO) 0.1 K/uL (0.0-0.2); BASOPHILS % (AUTO) 1.2 % (0.0-2.0); EOSINOPHILS # (AUTO) 0.2 K/uL (0.0-0.7); EOSINOPHILS % (AUTO) 2.2 % (0.0-6.0); HEMATOCRIT 37 % (33-45); HEMOGLOBIN 12.5 g/dL (11.5-14.8); LYMPHOCYTES # (AUTO) 2.5 K/uL (0.8-4.8); LYMPHOCYTES % (AUTO) 30.9 % (20.0-44.0); MEAN CORPUSCULAR HEMOGLOBIN 27 PG (26.0-33.0); MEAN CORPUSCULAR HGB CONC 34 g/dl (31.0-36.0); MEAN CORPUSCULAR VOLUME 81 fL (82-100); MONOCYTES # (AUTO) 0.7 K/uL (0.1-1.30); MONOCYTES % (AUTO) 8.2 % (2.0-12.0); NEUTROPHILS # (AUTO) 4.7 K/uL (1.8-8.9); NEUTROPHILS % (AUTO) 57.5 % (43.0-81.0); PLATELET COUNT (AUTO) 245 K/uL (150-450); RED BLOOD CELL COUNT(AUTO) 4.55 MIL/uL (4.0-5.2); RED CELL DISTRIBUTION WIDTH 13.2 % (11.5-15.0); WHITE BLOOD COUNT (AUTO) 8.2 K/uL (4.3-11.0)
[2024-06-09 16:43] LABS: CALCIUM, SERUM 10.1 mg/dL (8.5-10.1); CARBON DIOXIDE 31 mmol/L (21-32); CHLORIDE 100 mmol/L (98-107); CREATININE 1.1 mg/dL (0.6-1.3); GLUCOSE 259 mg/dL (74-106); POTASSIUM 4.2 mmol/L (3.5-5.1); SODIUM SERUM 133 mmol/L (136-145); UREA NITROGEN, BLOOD 30 mg/dL (7-18)
[2024-06-09 16:56] LABS: ACETAMINOPHEN 0 ug/ml (10-30); ALANINE AMINOTRANSFERASE 22 U/L (12-78); ALBUMIN 3.2 g/dL (3.4-5.0); ALCOHOL, BLOOD < 3 mg/dL (0-10); ALKALINE PHOSPHATASE 108 U/L (46-116); ASPARTATE AMINOTRANSFERASE 11 U/L (15-37); BILIRUBIN,DIRECT 0.1 mg/dL (0.0-0.2); BILIRUBIN,TOTAL 0.3 mg/dL (0.2-1.0); SALICYLATE 1.8 mg/dL (2.8-20.0); TOTAL PROTEIN, SERUM 7.3 g/dL (6.4-8.2)
[2024-06-09] MEDS ORDERED: PSYL3.4P6 PO (17:19)
[2024-06-09] MEDS ORDERED: MAGN400O6 PO (17:19)
[2024-06-09] MEDS ORDERED: CRAN300T PO (17:19)
[2024-06-09 18:14] LABS: APPEARANCE,URINE Slightly Cloudy (CLEAR); BILIRUBIN,URINE Negative (NEGATIVE); BLOOD, URINE Negative Ery/uL (NEGATIVE); COLOR,URINE YELLOW (YELLOW); KETONES,URINE Negative (NEGATIVE); LEUKOCYTE ESTERASE ,URINE Negative (NEGATIVE); NITRITE, URINE Negative (NEGATIVE); PROTEIN,URINE Negative (NEGATIVE); UGLUCOSE 500 MG/DL mg/dL (NEGATIVE); UROBILINOGEN,URINE 0.2 EU/dL (0.2)
[2024-06-09 18:32] LABS: AMPHETAMINE, URINE NEGATIVE (NEGATIVE); BARBITURATE, URINE NEGATIVE (NEGATIVE); BENZODIAZEPINE, URINE NEGATIVE (NEGATIVE); CANNABINOID, URINE NEGATIVE (NEGATIVE); COCCAINE, URINE NEGATIVE (NEGATIVE); OPIATE, URINE NEGATIVE (NEGATIVE); PHENCYCLIDINE SCREEN,URINE NEGATIVE (NEGATIVE)
[2024-06-09] MEDS: LORAZEPAM 1 MG TABLET PO ONE (20:06)
[2024-06-09 20:12] LABS: RBC,URINE 0-2 /HPF (0-2); WBC,URINE 0-2 /HPF (0-3)
[2024-06-09 20:13] LABS: ADD URINE CULTURE YES; BACTERIA,URINE 2+ /HPF (None Seen); HYALINE CASTS, URINE Rare /LPF (None Seen); YEAST,URINE Few /HPF (None Seen)
[2024-06-09] MEDS ORDERED: hydrALAZINE HCL 50 MG TABLET ONE (21:59)
[2024-06-09] MEDS: hydrALAZINE HCL 25 MG TABLET PO ONE (22:08)
[2024-06-10 00:50] VITALS: BP 148/65; TEMP 97.1; O2SAT 97
== END 2024-06-10 00:51 ==
LOC: ER 15:45
DX: R45.1 Restlessness and agitation (principal); R45.6 Violent behavior; I10 Essential (primary) hypertension; E11.9 Type 2 diabetes mellitus without complications; F29 Unspecified psychosis not due to a substance or known physiological condition; Z20.822 Contact with and (suspected) exposure to COVID-19
CPT/HCPCS: 36415; 80048-TC; 80076-TC; 81001; 85025-TC; 87081-TC; 87086-TC; G0480